=== PATIENT | female | born 1965 | race Caucasian/White ===

== ENCOUNTER 2017-07-07 00:05 | Emergency (ER) | payer BC ==
[~2017-07-07] VITALS: Ht 161.3 cm; Wt 71.5 kg
[2017-07-07 00:10] VITALS: Ht 161.3 cm; Wt 71.5 kg
[2017-07-07] MEDS ORDERED: SODIUM CHLORIDE 0.9% 1000ML 1,000 ML IV ONE (00:30)
[2017-07-07] MEDS ORDERED: MoRPHine SULFATE 4 MG/ML 1 ML CARP\\VIAL IV ONE (00:45)
[2017-07-07 00:56] LABS: POINT OF CARE TROPONIN I < 0.030 ng/ml (0-0.045)
[2017-07-07 01:06] LABS: BASO % 0.3 %; BASO ABS # 0.02 K/uL (0-0.2); COMPLETE YES; EOS % 1.7 %; HEMATOCRIT 40.2 % (37-47); IG% 0.4 %; LYMPH ABS # 2.47 K/uL (1.2-3.4); MEAN CELL VOLUME 91.6 fL (80-100); MEAN CORPUSCULAR HEMOGLOBIN 30.3 pg (25-34); MEAN CORPUSCULAR HGB CONC 33.1 g/dl (32-36); MONO % 9.2 %; NEUT % 54.4 %; PLATELET COUNT 213 K/uL (130-400); RED BLOOD COUNT 4.39 M/uL (4.2-5.4); WHITE BLOOD COUNT 7.27 K/uL (4.8-10.8)
[2017-07-07] MEDS ORDERED: OPTIRAY 320 IV PRN (01:15)
[2017-07-07 01:26] LABS: BUN/CREATININE RATIO 23.1 (10-20); CALCIUM 8.7 mg/dl (8.5-10.1); CREATININE 0.97 mg/dl (0.60-1.20); MAGNESIUM 2.3 mg/dl (1.8-2.4); POTASSIUM 3.9 mmol/L (3.5-5.1)
[2017-07-07 01:37] LABS: ALB/GLOB RATIO 1.1 (0.9-2); THYROID STIMULATING HORMONE 1.85 uIu/ml (0.300-4.500)
[2017-07-07 02:11] LABS: MANUAL MICROSCOPIC REQUIRED? NO; REVIEW REQ? NO; URINE APPEARANCE CLEAR (CLEAR); URINE BILIRUBIN NEG (NEG); URINE COLOR YELLOW; URINE EPITHELIAL CELL AUTO 20-30 /lpf (0-5); URINE NITRITE NEG (NEG); URINE PH 5.5 (4.5-7.5); URINE SPECIFIC GRAVITY 1.014 (1.000-1.030); UROBILINOGEN NEG (NEG); ZZUR CULT IF INDIC CLEAN CATCH NO
[2017-07-07 02:57] VITALS: BP 112/63; PULSE 60; TEMP 36.6; O2SAT 97
--- NOTE | 2017-07-07 05:13 | EMERGENCY ROOM VISIT NOTE ---
History First contact with patient: 00:20 Chief Complaint: BACK PAIN Stated Complaint: POSS HEART ATTACK SYMPTOMS History of Present Illness The patient is a 51 year old female who presents to the Emergency Room with complaints of right sided back pain radiating into her right shoulder for the past several hours. The patient states that she was in bed when her symptoms began. She is not having distinct shortness of breath or palpitations. She is able to stand, bend, and twist without significant worsening of her symptoms. She has not taken anything [id number] for her pain. She does not have radiation of discomfort. She rates her discomfort a 7/10. Review of Systems More than 10 systems were reviewed and otherwise negative with the exception of history of present illness. Past Medical/Surgical History No pertinent chronic medical disease Family History Family history of heart disease Social History Smoking Status: Never Smoker Housing Status: lives with family Current/Historical Medications No Active Prescriptions or Reported Meds Physical Exam Vital Signs Date Time Temp Pulse Resp B/P (MAP) Pulse Ox O2 Delivery O2 Flow Rate FiO2 07/07/17 02:57 36.6 60 18 112/63 97 07/07/17 02:42 60 18 112/63 97 Room Air 07/07/17 02:00 60 16 117/67 96 Room Air 07/07/17 00:44 Room Air 07/07/17 00:29 61 07/07/17 00:10 36.6 63 18 148/85 99 Room Air Pain Rating (0-10): 2.0 Physical Exam VITALS: Vitals are noted on the nurse's note and reviewed by myself. Vital signs stable. GENERAL: Well-developed, well-nourished, white female, who is in no acute distress and resting comfortably. Patient is cooperative with the examination. NECK: Supple without nuchal rigidity. No lymphadenopathy. No thyromegaly. Cervical spine is nontender. HEART: Regular rate and rhythm without murmurs gallops or rubs. LUNGS: Clear to auscultation bilaterally without wheezes, rales or rhonchi. No retractions or accessory muscle use. ABDOMEN: Positive normal bowel sounds x 4. Soft, nontender, without masses or organomegaly. No guarding or rebound tenderness. MUSCULOSKELETAL: No muscle atrophy, erythema, or edema noted. Full range of motion without joint tenderness in all extremities. No obvious tenderness of the spine or paravertebral musculature. Negative straight leg raise. No saddle paresthesias. NEURO: Patient was alert and oriented to person place and time. CN II through XII grossly intact. SKIN: The skin was without rashes, erythema, edema, or bruising. No evidence of rash in the area of patient discomfort. Medical Decision & Procedures ER Provider Diagnostic Interpretation: Preliminary Findings Only See Final Report For Complete Findings CTA CHEST: No evidence of pulmonary embolus. No thoracic aortic dissection or aneurysm. The lungs are clear. No pleural effusion or pneumothorax. Heart and pericardium are unremarkable. No significant adenopathy. Upper abdomen demonstrates low-density lesions within the liver which are too small to characterize. No acute osseous abnormality. Laboratory Results 07/07/17 00:32 Red Blood Count 4.39, Mean Corpuscular Volume 91.6, Mean Corpuscular Hemoglobin 30.3, Mean Corpuscular Hemoglobin Concent 33.1, Mean Platelet Volume 9.0, Neutrophils (%) (Auto) 54.4, Lymphocytes (%) (Auto) 34.0, Monocytes (%) (Auto) 9.2, Eosinophils (%) (Auto) 1.7, Basophils (%) (Auto) 0.3, Neutrophils # (Auto) 3.96, Lymphocytes # (Auto) 2.47, Monocytes # (Auto) 0.67, Eosinophils # (Auto) 0.12, Basophils # (Auto) 0.02 07/07/17 00:32 Test 07/07/17 00:32 07/07/17 00:37 07/07/17 01:50 White Blood Count 7.27 K/uL (4.8-10.8) Red Blood Count 4.39 M/uL (4.2-5.4) Hemoglobin 13.3 g/dL (12.0-16.0) Hematocrit 40.2 % (37-47) Mean Corpuscular Volume 91.6 fL (80-100) Mean Corpuscular Hemoglobin 30.3 pg (25-34) Mean Corpuscular Hemoglobin Concent 33.1 g/dl (32-36) Platelet Count 213 K/uL (130-400) Mean Platelet Volume 9.0 fL (7.4-10.4) Neutrophils (%) (Auto) 54.4 % Lymphocytes (%) (Auto) 34.0 % Monocytes (%) (Auto) 9.2 % Eosinophils (%) (Auto) 1.7 % Basophils (%) (Auto) 0.3 % Neutrophils # (Auto) 3.96 K/uL (1.4-6.5) Lymphocytes # (Auto) 2.47 K/uL (1.2-3.4) Monocytes # (Auto) 0.67 K/uL (0.11-0.59) Eosinophils # (Auto) 0.12 K/uL (0-0.5) Basophils # (Auto) 0.02 K/uL (0-0.2) RDW Standard Deviation 38.4 fL (36.4-46.3) RDW Coefficient of Variation 11.4 % (11.5-14.5) Immature Granulocyte % (Auto) 0.4 % Immature Granulocyte # (Auto) 0.03 K/uL (0.00-0.02) Anion Gap 8.0 mmol/L (3-11) Est Creatinine Clear Calc Drug Dose 64.3 ml/min Estimated GFR () 77.3 Estimated GFR (Non- 66.7 BUN/Creatinine Ratio 23.1 (10-20) Calcium Level 8.7 mg/dl (8.5-10.1) Magnesium Level 2.3 mg/dl (1.8-2.4) Total Bilirubin 0.4 mg/dl (0.2-1) Aspartate Amino Transf (AST/SGOT) 21 U/L (15-37) Alanine Aminotransferase (ALT/SGPT) 24 U/L (12-78) Alkaline Phosphatase 76 U/L (45-117) Total Protein 7.8 gm/dl (6.4-8.2) Albumin 4.0 gm/dl (3.4-5.0) Globulin 3.8 gm/dl (2.5-4.0) Albumin/Globulin Ratio 1.1 (0.9-2) Lipase 234 U/L (73-393) Thyroid Stimulating Hormone (TSH) 1.850 uIu/ml (0.300-4.500) Bedside D-Dimer 195 ng/mlFEU (0-450) Bedside Troponin I < 0.030 ng/ml (0-0.045) Urine Color YELLOW Urine Appearance CLEAR (CLEAR) Urine pH 5.5 (4.5-7.5) Urine Specific [place] 1.014 (1.000-1.030) Urine Protein NEG (NEG) Urine Glucose (UA) NEG (NEG) Urine Ketones NEG (NEG) Urine Occult Blood 1+ (NEG) Urine Nitrite NEG (NEG) Urine Bilirubin NEG (NEG) Urine Urobilinogen NEG (NEG) Urine Leukocyte Esterase NEG (NEG) Urine WBC (Auto) 1-5 /hpf (0-5) Urine RBC (Auto) 0-4 /hpf (0-4) Urine Hyaline Casts (Auto) 1-5 /lpf (0-5) Urine Epithelial Cells (Auto) 20-30 /lpf (0-5) Urine Bacteria (Auto) NEG (NEG) Medications Administered Medications (Trade) Dose Ordered Sig/Mila Route Start Time Stop Time Status Last Admin Dose Admin Sodium Chloride 1,000 ml @ 999 mls/hr Q1H1M ONCE IV 07/07/17 00:30 07/07/17 01:30 DC 07/07/17 00:44 999 MLS/HR ED Course Physical exam and history were performed. Nursing notes, EMR, and Medication List were personally reviewed. Patient appears to have vague right-sided back and right-sided shoulder pain for the past several hours. Upon discussion with the patient she does have a recent travel history including coming home from [place] and flank to and from [place]. IV access was established and labs were obtained. Patient was hydrated as above. She was offered morphine, but declined. Plain films were performed and did not show significant acute findings. The patient's blood work is as above and was reviewed. She does not have a significantly elevated white blood cell count, gross anemia, bandemia, or significant Imbalance. Lipase and transaminases are nondiagnostic. EKG was normal sinus rhythm without acute ST elevation. Troponin 1 is negative. Due to the vague onset and travel history of the patient's symptoms and did elect CT scan of the chest. CT scan does not show evidence of PE or air under the diaphragm. The patient was reevaluated multiple times with a course of her stay. She remained very comfortable here in the department and did not have any worsening of her symptoms. I discussed options of care with the patient, who felt well for discharge home. This seems reasonable as she does not appear to have an acute life- threatening process. Her symptoms certainly could represent a musculoskeletal etiology, and the patient was asked to follow with her primary care physician in the next 1-2 days for recheck. She is otherwise date ER with any new, worsening, or concerning symptoms. The chart was completed utilizing [employer] Speech Voice Recognition Software. Grammatical errors, random word insertions, pronoun errors, and incomplete sentences are an occasional consequence of this system due to software limitations, ambient noise, and hardware issues. Any formal questions or concerns about the content, text, or information contained within the body of this dictation should be directly addressed to the provider for clarification. . Medical Decision Differential diagnosis includes, but is not limited to: Myocardial infarction, dysrhythmia, pericarditis, pneumothorax, aortic aneurysm/dissection, DVT/PE, anxiety, GERD, PUD, electrolyte imbalance, thyroid disorder, pneumonia, bronchitis, pancreatitis, and others Impression Primary Impression: Right-sided back pain Departure Information Dispostion Home / Self-Care Condition GOOD Prescriptions No Active Prescriptions or Reported Meds Forms HOME CARE DOCUMENTATION FORM, Work Instructions, Additional Instructions: Patient was seen and evaluated today in the emergency department fo medical care. Return to work on 07/09/2017. Please excuse. IMPORTANT VISIT INFORMATION Patient Instructions [facility] Additional Instructions You were seen and evaluated today on an emergency basis only. This is not a substitute for, or an effort to provide, complete comprehensive medical care. It is not possible to recognize and treat all injuries or illnesses in a single emergency department visit. For this reason it is recommended that you followup with your primary care physician in the next 1-2 days for recheck of your condition. For baseline pain relief you may alternate ibuprofen and acetaminophen every 4 hours for pain control. Take 600 mg ibuprofen (Advil) and then 4 hours later take 1000 mg acetaminophen (Tylenol). Do not take more than 3000 mg acetaminophen in a single day. You are welcome to return to the emergency department anytime with new, worsening, or concerning symptoms. Work Instructions Additional Work Instructions: Patient was seen and evaluated today in the emergency department for medical care. Return to work on 07/09/2017. Please excuse.
--- NOTE | 2017-07-07 06:48 | DIAGNOSTIC IMAGING REPORT ---
CT ANGIOGRAM OF THE CHEST CLINICAL HISTORY: Right posterior chest pain COMPARISON STUDY: Chest x-ray dated 07/07/2017 TECHNIQUE: Following the IV administration of 93 mL of [id number]-320, CT angiogram of the thorax was performed from the thoracic inlet to the lung bases utilizing the pulmonary embolus protocol. Images are reviewed in the axial, sagittal, and coronal planes. IV contrast was administered without complication. MIP imaging was performed. A dose lowering technique was utilized adhering to the principles of ALARA. CT DOSE: 238.39 mGy.cm FINDINGS: There are scattered hepatic hypodensities, statistically representing cysts. No pathologically enlarged axillary mediastinal or hilar lymph nodes were visualized. There was no evidence of thoracic aortic dilatation. There were no pulmonary artery filling defects to indicate acute pulmonary embolism. No pleural effusions are visualized. There was no evidence of focal pulmonary consolidation. IMPRESSION: 1. No evidence of acute pulmonary embolism 2. No evidence of focal pulmonary consolidation Electronically signed by: Robby Sweet M.D. 07/07/2017 6:47 AM Dictated Date/Time: 07/07/2017 6:44 AM
--- NOTE | 2017-07-07 07:10 | DIAGNOSTIC IMAGING REPORT ---
ABDOMEN 2VIEW W/PA CHEST RTN CLINICAL HISTORY: 51 years-old Female presenting with Right side CP. TECHNIQUE: PA view of the chest and supine and upright views of the abdomen were obtained. COMPARISON: None. FINDINGS: Cardiomediastinal silhouette normal. Lungs and pleural spaces clear. Moderate stool burden throughout the colon. No evidence of bowel obstruction. No evidence of free intraperitoneal gas, pneumatosis, or portal venous gas. No calcifications project over the renal shadows or along the courses of the ureters. Osseous structures normal. IMPRESSION: 1. No acute cardiopulmonary disease. No radiographic evidence of acute intra-abdominal pathology. Electronically signed by: Frantz Bey M.D. 07/07/2017 7:08 AM Dictated Date/Time: 07/07/2017 7:07 AM
== END 2017-07-07 02:57 | disposition home or self-care (01) ==
LOC: C.EDB 00:07
DX: M54.9 Dorsalgia, unspecified (principal); M25.511 Pain in right shoulder

== ENCOUNTER → 2018-03-15 | Outpatient (CLI) | payer OTHER ==
--- NOTE | 2018-03-15 19:01 | DIAGNOSTIC IMAGING REPORT ---
PELVIC ULTRASOUND CLINICAL HISTORY: Uterine enlargement. Irregular periods. COMPARISON STUDY: None. TECHNIQUE: Transabdominal and transvaginal sonography of the pelvis was performed. FINDINGS: This exam is markedly compromised due to suboptimal penetration. Neither ovary was visualized. There was no free fluid within the pelvis. The uterus measures 7.1 x 3.3 x 4 cm. Endometrial thickness is difficult to assess on this exam but measures approximately 8 mm. There is a possible 1.4 cm left uterine body fibroid. There may be an additional 1.1 cm uterine fibroid. IMPRESSION: 1. Exam markedly compromised due to suboptimal penetration. Endometrial thickness of approximately 8 mm which could be correlated with menstrual cycle/menopausal status. 2. Nonvisualization of the ovaries. 3. Heterogeneous myometrium with a few hypoechoic foci which could reflect small fibroids or adenomyosis. Electronically signed by: Arnav Covington M.D. 03/15/2018 6:59 PM Dictated Date/Time: 03/15/2018 6:55 PM
== END | disposition home or self-care (01) ==
LOC: C.ULTR 15:45
PROVIDERS: ATTEND Family Medicine
DX: N85.2 Hypertrophy of uterus (principal); R10.2 Pelvic and perineal pain